=== PATIENT | female | born 1985 | race African-American/Black ===

== ENCOUNTER 2018-02-10 17:19 | Emergency (ER) | payer MEDICAID, OTHER, SELFPAY ==
[~2018-02-10] VITALS: Ht 160 cm; Wt 105.9 kg
== END 2018-02-10 19:37 | disposition home or self-care (01) ==
LOC: ED 19:15
DX: F41.1 Generalized anxiety disorder (principal); J02.8 Acute pharyngitis due to other specified organisms; B97.89 Other viral agents as the cause of diseases classified elsewhere; F17.200 Nicotine dependence, unspecified, uncomplicated
CPT/HCPCS: 82962; 99284; Q0177

== ENCOUNTER 2018-02-18 04:33 | Emergency (ER) | payer MEDICAID ==
[~2018-02-18] VITALS: Ht 160 cm; Wt 107.9 kg
[2018-02-18 04:41] VITALS: BP 134/80
[2018-02-18] MEDS ORDERED: HYDR50TA13 PO (05:10)
[2018-02-18] MEDS ORDERED: HALO5TAB5 PO (05:10)
== END 2018-02-18 05:38 | disposition home or self-care (01) ==
LOC: ED 04:43
DX: F20.0 Paranoid schizophrenia (principal); F41.9 Anxiety disorder, unspecified
CPT/HCPCS: 99284

== ENCOUNTER 2018-02-22 13:40 | Emergency (ER) | payer MEDICAID ==
[~2018-02-22] VITALS: Ht 160 cm; Wt 109.0 kg
[~2018-02-22 13:40] MED LIST: HALO5TAB5 PO; HYDR50TA13 PO
[2018-02-22 14:32] VITALS: BP 147/92
[2018-02-22] MEDS ORDERED: KETOROLAC 30 MG/1 ML ONE (14:51)
[2018-02-22] MEDS ORDERED: ONDANSETRON ODT 4 MG ONE (14:51)
[2018-02-22] MEDS ORDERED: DIPHENHYDRAMINE 25 MG CAPSULE ONE (14:51)
[2018-02-22] MEDS ORDERED: DIPHENHYDRAMINE 25 MG CAPSULE PO ONE (15:00)
[2018-02-22] MEDS ORDERED: KETOROLAC 30 MG/1 ML IM ONE (15:00)
[2018-02-22] MEDS ORDERED: ONDANSETRON ODT 4 MG PO ONE (15:00)
== END 2018-02-22 15:57 | disposition home or self-care (01) ==
LOC: ED 15:47
DX: R51 Headache (principal); F41.9 Anxiety disorder, unspecified; F20.9 Schizophrenia, unspecified; F17.200 Nicotine dependence, unspecified, uncomplicated
CPT/HCPCS: 96372; 99283; J1885; Q0162; Q0163

== ENCOUNTER 2018-04-05 08:14 | Emergency (ER) | payer MEDICAID ==
[~2018-04-05] VITALS: Ht 160 cm; Wt 106.3 kg
[2018-04-05] MEDS ORDERED: IBUPROFEN 200 MG TABLET PO ONE (08:30)
[2018-04-05] MEDS ORDERED: IBUPROFEN 200 MG TABLET ONE (08:33)
[2018-04-05 09:13] VITALS: BP 115/76
== END 2018-04-05 09:16 | disposition home or self-care (01) ==
LOC: ED 08:59
DX: S29.012A Strain of muscle and tendon of back wall of thorax, initial encounter (principal); F20.9 Schizophrenia, unspecified; F41.1 Generalized anxiety disorder; J45.31 Mild persistent asthma with (acute) exacerbation; W00.0XXA Fall on same level due to ice and snow, initial encounter; Y93.89 Activity, other specified; Y92.89 Other specified places as the place of occurrence of the external cause; Y99.8 Other external cause status
CPT/HCPCS: 72072; 99283

== ENCOUNTER 2018-04-12 05:26 | Observation (INO) | payer MEDICAID ==
[~2018-04-12] VITALS: Ht 167.6 cm; Wt 90.0 kg
[2018-04-12] MEDS ORDERED: SODIUM CHLORIDE 0.9% 1,000 ML IV ONE (05:36)
[2018-04-12] MEDS ORDERED: ZIPRASIDONE 20 MG INJ IM ONE ×2 (05:48→06:00)
[2018-04-12] MEDS ORDERED: FAMOTIDINE 20 MG/2 ML IVP ONE (06:00)
[2018-04-12] MEDS ORDERED: ONDANSETRON ODT 4 MG PO ONE (06:00)
[2018-04-12] MEDS ORDERED: MAALOX/HYOSCYAMINE/LIDOCAINE 45 ML BTL PO ONE ×2 (06:00→13:30)
[2018-04-12] MEDS ORDERED: ONDANSETRON ODT 4 MG ONE ×2 (06:01→14:06)
[2018-04-12] MEDS ORDERED: FAMOTIDINE 20 MG/2 ML ONE (06:01)
[2018-04-12] MEDS ORDERED: MAALOX/HYOSCYAMINE/LIDOCAINE 45 ML BTL ONE ×2 (06:01→13:29)
[2018-04-12 06:02] LABS: MEAN CORPUSCULAR HEMOGLOBIN 20.7 pg (27.0-34.8); MEAN CORPUSCULAR HGB CONC 31.3 g/dL (32.4-35.8); MEAN PLATELET VOLUME 10.4 fL (7.4-10.4); PLATELET COUNT 262 x10^3/uL (130-400); RED BLOOD COUNT 5.84 x10^6/uL (3.82-5.3); RED CELL DISTRIBUTION WIDTH 16.8 % (9.6-15.2)
[2018-04-12 06:11] LABS: ALBUMIN 3.4 g/dL (3.4-5.0); ANION GAP 8 mmol/L (5-15); CALCIUM 8.9 mg/dL (8.5-10.1); CHLORIDE 108 mmol/L (98-107); SALICYLATE LEVEL 3.2 mg/dL (2.8-20.0)
[2018-04-12 06:17] LABS: ALANINE AMINOTRANSFERASE 22 U/L (12-78); ALKALINE PHOSPHATASE 73 U/L (45-117); BILIRUBIN,TOTAL 0.5 mg/dL (0.2-1.0); CREATININE 0.82 mg/dL (0.55-1.02)
[2018-04-12 06:20] LABS: ACETAMINOPHEN < 2 mcg/mL (10-30)
[2018-04-12 06:38] LABS: MD YES
[2018-04-12 06:41] LABS: ANISOCYTOSIS 1+; BASOS#(MANUAL) 0.12 x10^3/uL (0-0.1); BASOS% (MANUAL) 1 % (0-1); EOS#(MANUAL) 0.37 x10^3/uL (0.0-0.4); EOS% (MANUAL) 3 % (1-7); LYMPH#(MANUAL) 6.52 x10^3/uL (1-3.4); LYMPHS% (MANUAL) 53 % (22-44); MONOS#(MANUAL) 0.37 x10^3/uL (0.3-2.7); MONOS% (MANUAL) 3 % (2-9); SEG#(MANUAL) 4.92 x10^3/uL (1.8-6.8); SEGS% (MANUAL) 40 % (42-75)
[2018-04-12 06:42] LABS: HYPOCHROMIA 2+; MICROCYTOSIS 2+; POLYCHROMASIA 1+; TARGET CELLS 1+
[2018-04-12 06:43] LABS: <PLATELET ESTIMATE> ADEQUATE; LARGE PLATELETS 1+
[2018-04-12 07:36] LABS: AMPHETAMINE SCREEN, URINE Negative (Negative); BARBITURATE SCREEN, URINE Positive (Negative); BENZODIAZEPINE SCREEN, URINE Negative (Negative); CANNABINOID SCREEN, URINE Negative (Negative); COCAINE SCREEN, URINE Negative (Negative); METHADONE SCREEN, URINE Negative (Negative); OPIATE SCREEN, URINE Negative (Negative)
[2018-04-12 09:26] LABS: ANION GAP 8 mmol/L (5-15); CALCIUM 8.7 mg/dL (8.5-10.1); CHLORIDE 112 mmol/L (98-107); CREATININE 0.78 mg/dL (0.55-1.02)
[2018-04-12] MEDS ORDERED: ACETAMINOPHEN 325 MG TABLET PO PRN (10:30)
[2018-04-12] MEDS ORDERED: HALOPERIDOL 5 MG/ML IM PRN (10:30)
[2018-04-12] MEDS ORDERED: BENZTROPINE 1 MG TABLET PO PRN (10:30)
[2018-04-12] MEDS ORDERED: NICOTINE 7 MG/24 HR PATCH.TD24 TD SCH (10:30)
[2018-04-12] MEDS ORDERED: HALOPERIDOL 5 MG TABLET PO PRN (10:30)
[2018-04-12] MEDS ORDERED: NICOTINE 7 MG/24 HR PATCH.TD24 ONE (11:11)
[2018-04-12] MEDS ORDERED: HALOPERIDOL 5 MG TABLET ONE (11:11)
[2018-04-12 13:27] VITALS: BP 130/74
[2018-04-12] MEDS ORDERED: hydrOXyzine 50MG TABLET PO SCH (21:00)
[2018-04-13] MEDS ORDERED: HALOPERIDOL 5 MG TABLET PO SCH (09:00)
== END 2018-04-13 15:30 ==
LOC: ED 06:42 → EDIP 10:10
PROVIDERS: ADMIT Internal Medicine; ATTEND Internal Medicine
DX: T14.91XA Suicide attempt, initial encounter (principal); T54.92XA Toxic effect of unspecified corrosive substance, intentional self-harm, initial encounter; R11.2 Nausea with vomiting, unspecified; F20.0 Paranoid schizophrenia; F32.9 Major depressive disorder, single episode, unspecified; F41.1 Generalized anxiety disorder; J45.909 Unspecified asthma, uncomplicated; F17.210 Nicotine dependence, cigarettes, uncomplicated; D72.829 Elevated white blood cell count, unspecified; Y93.9 Activity, unspecified; Y92.89 Other specified places as the place of occurrence of the external cause; Y99.8 Other external cause status
CPT/HCPCS: 36415; 71045; 80048; 80053; 80307; 80329; 84703; 85025; 93005; 96361; 96372; 96374; 99284; G0378; J3486; J3490; J7030; Q0162; G0480

== ENCOUNTER 2018-12-04 11:13 | Inpatient (IN) | payer MEDICAID ==
[~2018-12-04] VITALS: Ht 160 cm; Wt 100.0 kg
[2018-12-04 19:07] VITALS: BP 98/65
== END 2018-12-05 02:00 | DRG 52 ==
LOC: ED 11:54 → EDIP 13:16 → 2N 15:51
PROVIDERS: ADMIT Internal Medicine; ATTEND Internal Medicine
DX: G93.40 Encephalopathy, unspecified (principal); D50.9 Iron deficiency anemia, unspecified; F15.10 Other stimulant abuse, uncomplicated; F41.1 Generalized anxiety disorder; F20.3 Undifferentiated schizophrenia; J45.909 Unspecified asthma, uncomplicated; F44.89 Other dissociative and conversion disorders; Z88.0 Allergy status to penicillin
CPT/HCPCS: 36415; 51702; 72040; 80048; 80307; 81003; 82040; 82728; 83540; 83550; 84443; 84703; 85025; G0378; J1630

== ENCOUNTER 2018-12-04 23:43 | Inpatient (IN) | payer MEDICAID ==
[~2018-12-04] VITALS: Ht 160 cm; Wt 103.0 kg
[2018-12-11 07:39] VITALS: BP 122/73
== END 2018-12-11 13:00 | disposition home or self-care (01) | DRG 750 ==
LOC: 3E 12-05 02:04
PROVIDERS: ADMIT Psychiatry & Neurology Psychosomatic Medicine; ATTEND Psychiatry & Neurology Psychosomatic Medicine
DX: F20.0 Paranoid schizophrenia (principal); F15.20 Other stimulant dependence, uncomplicated; F33.1 Major depressive disorder, recurrent, moderate; G47.00 Insomnia, unspecified; E66.9 Obesity, unspecified; Z88.0 Allergy status to penicillin; Z68.41 Body mass index [BMI] 40.0-44.9, adult; Z79.899 Other long term (current) drug therapy
CPT/HCPCS: 36415; 51702; 71045; 72040; 80048; 80061; 80307; 81003; 82040; 82607; 82728; 83540; 83550; 84443; 84703; 85025; 86592; 93005; G0378; J1630

== ENCOUNTER 2019-05-16 16:13 | Emergency (ER) | payer MEDICAID ==
[~2019-05-16 16:13] MED LIST changes: +DIVA500T4 PO; -HYDR50TA13 PO; +HYDR50TA99 PO; +OLAN10TA9 PO
--- NOTE | 2019-05-16 16:51 | NUR ---
NOT IN LOBBY X1
--- NOTE | 2019-05-16 17:10 | NUR ---
NOT IN LOBBY X2
--- NOTE | 2019-05-16 18:45 | NUR ---
NOT IN LOBBY X3
== END 2019-05-16 18:47 | disposition left against medical advice (07) ==
LOC: ED 17:00
DX: Z53.21 Procedure and treatment not carried out due to patient leaving prior to being seen by health care provider (principal)

== ENCOUNTER 2019-05-20 13:28 | Emergency (ER) | payer MEDICAID ==
[~2019-05-20] VITALS: Ht 172.7 cm; Wt 100.0 kg
[~2019-05-20 13:28] MED LIST changes: +HYDR50TA13 PO; -HYDR50TA99 PO
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
--- NOTE | 2019-05-20 14:00 | NUR ---
WINDOWS SERVER SPECIALIST LYLE AT BEDSIDE AFTER POLICE ACADEMY PROGRAM COORDINATOR TIEN SPEAKING WITH PT. PT MOVING AROUND IN [place] AND [place]
[2019-05-20] MEDS ORDERED: ZIPRASIDONE 20 MG INJ IM ONE (14:30)
[2019-05-20 15:05] LABS: ALBUMIN 3.5 g/dL (3.4-5.0); ANION GAP 8 mmol/L (5-15); CHLORIDE 109 mmol/L (98-107); CREATININE 0.63 mg/dL (0.55-1.02); SALICYLATE LEVEL < 1.7 mg/dL (2.8-20.0)
[2019-05-20 15:30] LABS: BASOPHILS # (AUTO) 0.06 x10^3/uL (0-0.1); BASOPHILS % (AUTO) 1 % (0-1); EOSINOPHILS # (AUTO) 0.01 x10^3/uL (0-0.4); EOSINOPHILS % (AUTO) 0 % (1-7); LYMPHOCYTES # (AUTO) 2.63 x10^3/uL (1-3.4); LYMPHOCYTES % (AUTO) 28 % (22-44); MD SCAN; MEAN CORPUSCULAR VOLUME 64.5 fL (80-100); MEAN PLATELET VOLUME 9.5 fL (7.4-10.4); MONOCYTES # (AUTO) 0.67 x10^3/uL (0.2-0.8); MONOCYTES % (AUTO) 7 % (2-9); NEUTROPHILS # (AUTO) 5.89 x10^3/uL (1.8-6.8); NEUTROPHILS % (AUTO) 64 % (42-75); PLATELET COUNT 291 x10^3/uL (130-400); RED BLOOD COUNT 5.41 x10^6/uL (3.82-5.3)
--- NOTE | 2019-05-20 17:08 | NUR ---
PT AWAKE AND UOB TO BATHROOM WITHOUT ASSISTANCE. OBTAINED URINE SAMPLE. PROVIDED FOOD
[2019-05-20 17:22] LABS: MICROSCOPIC NOT IND
[2019-05-20 17:26] LABS: CULTURE INDICATED? NO
[2019-05-20 17:35] LABS: AMPHETAMINE SCREEN, URINE Positive (Negative); BARBITURATE SCREEN, URINE Negative (Negative); BENZODIAZEPINE SCREEN, URINE Negative (Negative); CANNABINOID SCREEN, URINE Negative (Negative); COCAINE SCREEN, URINE Negative (Negative); METHADONE SCREEN, URINE Negative (Negative); OPIATE SCREEN, URINE Negative (Negative)
--- NOTE | 2019-05-20 18:27 | NUR ---
AFTER EATING PT BACK TO SLEEP
--- NOTE | 2019-05-20 19:07 | NUR ---
REPORT TO SHEKHAR ADKINS
--- NOTE | 2019-05-20 19:12 | NUR ---
REPORT RECEIVED FROM JED PEREZ. PLAN OF CARE DISCUSSED. PT SLEEPING AT THIS TIME. REPIRATIONS EVEN AND UNLABORED.
[2019-05-20 20:44] VITALS: BP 103/54
--- NOTE | 2019-05-20 20:44 | NUR ---
PT IS A&O X4. PT GIVEN SOMETHING TO DRINK AND EAT. PT IS ABLE TO DRESS SELF AND AMBULATE SAFELY AROUND COSTA AND ROOM. PT GIVEN A TAXI VOUCHER. VS STABLE. PT DISCHARGED.
== END 2019-05-20 21:04 | disposition home or self-care (01) ==
LOC: ED 14:50
DX: O26.891 Other specified pregnancy related conditions, first trimester (principal); F15.959 Other stimulant use, unspecified with stimulant-induced psychotic disorder, unspecified; F41.1 Generalized anxiety disorder; J45.909 Unspecified asthma, uncomplicated; Z3A.01 Less than 8 weeks gestation of pregnancy
CPT/HCPCS: 36415; 80048; 80307; 81003; 82040; 84702; 85025; 96372; 99284; J3486; 84703; 99283

== ENCOUNTER 2019-08-23 16:40 | Emergency (ER) | payer MEDICAID ==
[~2019-08-23] VITALS: Ht 160 cm; Wt 109.1 kg
[~2019-08-23 16:40] MED LIST changes: -HYDR50TA13 PO; +HYDR50TA99 PO
--- NOTE | 2019-08-23 16:43 | NUR ---
Pt BIB [facility] for "hand pain" and "". Pt speech is rambling, in FCS with no SOB. NAD, denies additional needs at this time, Skin WNL, RESP WNL, ABC INTACT. Pt changed into gown, ambulated to and from bathroom with a smooth and steady gait, pt states she "messed up and forgot to pee into the cup". Salena MAGANAN at BS for eval and to discuss POC.
--- NOTE | 2019-08-23 17:19 | NUR ---
pt resting in gurney, call light within reach, NAD, denies additional needs at this time. Pt is in NAD, RESP WNL, Skin WNL and warm and dry, pt speech is clear but rushed, FCS no SOB, MAEx4. Waiting for xray, WCTM.
--- NOTE | 2019-08-23 17:44 | NUR ---
pt resting in gurney, call light within reach, NAD, denies additional needs at this time. Pt is in NAD, RESP WNL, Skin WNL and warm and dry, pt speech is clear but rushed, FCS no SOB, MAEx4. ADOPTION SPECIALIST notified of HR. Waiting for xray and US, WCTM.
--- NOTE | 2019-08-23 18:53 | NUR ---
pt resting in [place], call light within reach, NAD, denies additional needs at this time. Pt is in NAD, RESP WNL, Skin WNL and warm and dry, FCS no SOB noted, MAEx4. Waiting for US, WCTM.
[2019-08-23 18:54] VITALS: BP 147/64
--- NOTE | 2019-08-23 18:57 | NUR ---
Report received from JED Guillory. This RN to assume care. Awaiting US results.
--- NOTE | 2019-08-23 19:08 | NUR ---
Patient talking to herself with inappropriate words to the situation.
--- NOTE | 2019-08-23 19:23 | NUR ---
Discharge instructions given. All questions and concerns addressed. Patient ambulatory with a steady gait. Belongings with patient.
== END 2019-08-23 19:25 | disposition home or self-care (01) ==
LOC: EDBD → MERGE 16:40 → ED 18:10
DX: O26.892 Other specified pregnancy related conditions, second trimester (principal); R05 Cough; F15.10 Other stimulant abuse, uncomplicated; J45.909 Unspecified asthma, uncomplicated; F17.200 Nicotine dependence, unspecified, uncomplicated; Z3A.20 20 weeks gestation of pregnancy
CPT/HCPCS: 71045; 76815; 99284

== ENCOUNTER 2019-08-28 23:53 | Emergency (ER) | payer MEDICAID ==
[2019-08-29] VITALS: BP 128/73
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
[2019-08-29 00:26] LABS: ALANINE AMINOTRANSFERASE 28 U/L (12-78); ANION GAP 5 mmol/L (5-15); CALCIUM 8.7 mg/dL (8.5-10.1); CHLORIDE 106 mmol/L (98-107); CREATININE 0.49 mg/dL (0.55-1.02)
[2019-08-29 00:27] LABS: SALICYLATE LEVEL < 1.7 mg/dL (2.8-20.0)
[2019-08-29 00:28] LABS: ALKALINE PHOSPHATASE 55 U/L (45-117); BILIRUBIN,TOTAL 0.4 mg/dL (0.2-1.0); TOTAL PROTEIN 6.6 g/dL (6.4-8.2)
[2019-08-29 00:35] LABS: MD YES; MEAN CORPUSCULAR HEMOGLOBIN 20.5 pg (27.0-34.8); MEAN CORPUSCULAR HGB CONC 30.9 g/dL (32.4-35.8); MEAN CORPUSCULAR VOLUME 66.3 fL (80-100); MEAN PLATELET VOLUME 8.1 fL (7.4-10.4); PLATELET COUNT 259 x10^3/uL (130-400); RED BLOOD COUNT 4.67 x10^6/uL (3.82-5.3); RED CELL DISTRIBUTION WIDTH 16.5 % (9.6-15.2)
[2019-08-29 00:39] LABS: BASOS#(MANUAL) 0.09 x10^3/uL (0-0.1); BASOS% (MANUAL) 1 % (0-1); EOS#(MANUAL) 0.44 x10^3/uL (0.0-0.4); EOS% (MANUAL) 5 % (1-7); LYMPH#(MANUAL) 2.29 x10^3/uL (1-3.4); LYMPHS% (MANUAL) 26 % (22-44); MONOS#(MANUAL) 0.18 x10^3/uL (0.3-2.7); MONOS% (MANUAL) 2 % (2-9); REACTIVE LYMPHS # (MANUAL) 0.18 x10^3/uL (0-0); REACTIVE LYMPHS % (MANUAL) 2 % (0-0); SEG#(MANUAL) 5.63 x10^3/uL (1.8-6.8); SEGS% (MANUAL) 64 % (42-75)
[2019-08-29 00:40] LABS: ANISOCYTOSIS 1+; HYPOCHROMIA 2+; MICROCYTOSIS 2+; OVALOCYTES 1+
[2019-08-29 00:41] LABS: TARGET CELLS 2+
[2019-08-29] MEDS ORDERED: ARIP2TAB2 PO (00:43)
[2019-08-29 00:45] LABS: <PLATELET ESTIMATE> ADEQUATE
[2019-08-29 00:46] LABS: <PLT MORPHOLOGY> NORMAL PLT MORPH
[2019-08-29] MEDS ORDERED: hydrOXyzine 50MG TABLET ONE (00:55)
--- NOTE | 2019-08-29 00:59 | NUR ---
Patient placed on hold. Room secured, belongings locked in cabinet, sitter outside. Patient talking to herself and yelling out. Medicated patient per mar.
--- NOTE | 2019-08-29 02:21 | NUR ---
Patient laying in gurney talking to herself. Patient is calm. Sitter outside, room secure, belongings locked in cabinet.
--- NOTE | 2019-08-29 02:24 | NUR ---
Patient unable to provide urine at this time.
--- NOTE | 2019-08-29 03:15 | NUR ---
Patient resting in gurney. Respirations even and unlabored. Sitter outside, room secured, belongings locked in cabinet.
--- NOTE | 2019-08-29 04:13 | NUR ---
Packet faxed to [facility], [facility], and [facility].
--- NOTE | 2019-08-29 04:34 | NUR ---
Patient sleeping in rney. Respirations even and unlabored. Sitter outside, room secured, belongings locked in cabinet.
--- NOTE | 2019-08-29 05:32 | NUR ---
Patient sleeping in rney. Respirations even and unlabored. Sitter outside, room secured, belongings locked in cabinet.
--- NOTE | 2019-08-29 06:19 | NUR ---
Patient sleeping in rney. Respirations even and unlabored. Sitter outside, room secured, belongings locked in cabinet.
--- NOTE | 2019-08-29 06:51 | NUR ---
Report given to JED Merino.
--- NOTE | 2019-08-29 06:51 | NUR ---
RECEIVED REPORT FROM NONA. PT SLEEPING CALMLY ON GURNEY, NAD WITH EQUAL CHEST RISE/FALL, NO NEEDS AT THIS TIME, PT REMAINS IN SAFE ENVIRONMENT, SITTER IN VIEW.
--- NOTE | 2019-08-29 08:01 | NUR ---
PT UP TO BR- PROVIDED UA SAMPLE- SENT TO LAB, PT AGITATED & YELLING "I WANT MY STUFF, I NEED TO GET OUT OF HERE!"- DR SANDERS AWARE, RESPONDS TO STAFF WITH MUMBLED ANSWERS, NAD, NO NEEDS AT THIS TIME, PT REMAINS IN SAFE ENVIRONMENT, SITTER IN VIEW.
[2019-08-29 08:17] LABS: AMPHETAMINE SCREEN, URINE Positive (Negative); BARBITURATE SCREEN, URINE Negative (Negative); BENZODIAZEPINE SCREEN, URINE Negative (Negative); CANNABINOID SCREEN, URINE Negative (Negative); COCAINE SCREEN, URINE Negative (Negative); METHADONE SCREEN, URINE Negative (Negative); OPIATE SCREEN, URINE Negative (Negative)
--- NOTE | 2019-08-29 08:25 | NUR ---
PT GIVEN FOOD TRAY & PERSONAL BELONGINGS FOR DC HOME.
== END 2019-08-29 09:26 | disposition home or self-care (01) ==
LOC: ED 08-29 02:04
DX: O99.342 Other mental disorders complicating pregnancy, second trimester (principal); O99.512 Diseases of the respiratory system complicating pregnancy, second trimester; S60.812A Abrasion of left wrist, initial encounter; F15.159 Other stimulant abuse with stimulant-induced psychotic disorder, unspecified; J45.909 Unspecified asthma, uncomplicated; Z3A.20 20 weeks gestation of pregnancy; Z72.9 Problem related to lifestyle, unspecified; X58.XXXA Exposure to other specified factors, initial encounter; Y93.89 Activity, other specified; Y92.89 Other specified places as the place of occurrence of the external cause; Y99.8 Other external cause status
CPT/HCPCS: 36415; 80053; 80307; 85025; 99285; Q0177

== ENCOUNTER 2019-09-03 12:49 | Emergency (ER) | payer MEDICAID ==
[~2019-09-03] VITALS: Ht 157.5 cm; Wt 105.0 kg
[~2019-09-03 12:49] MED LIST changes: +ARIP2TAB2 PO
[2019-09-03 12:51] VITALS: BP 110/45
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
--- NOTE | 2019-09-03 13:12 | NUR ---
EDMD AT BEDSIDE TO EVALUATE AT THIS TIME.
--- NOTE | 2019-09-03 13:36 | NUR ---
PT SLEEPING IN GURNEY. RESPS EVEN AND UNLABORED.
[2019-09-03 13:42] LABS: ALBUMIN 2.9 g/dL (3.4-5.0); ANION GAP 4 mmol/L (5-15); CALCIUM 8.4 mg/dL (8.5-10.1); CHLORIDE 110 mmol/L (98-107)
[2019-09-03 14:02] LABS: CREATININE 0.47 mg/dL (0.55-1.02)
[2019-09-03 14:09] LABS: SALICYLATE LEVEL < 1.7 mg/dL (2.8-20.0)
[2019-09-03 14:20] LABS: MEAN CORPUSCULAR HEMOGLOBIN 20.4 pg (27.0-34.8); MEAN CORPUSCULAR HGB CONC 30.5 g/dL (32.4-35.8); MEAN CORPUSCULAR VOLUME 66.7 fL (80-100); MEAN PLATELET VOLUME 8.4 fL (7.4-10.4); PLATELET COUNT 275 x10^3/uL (130-400); RED BLOOD COUNT 4.62 x10^6/uL (3.82-5.3); RED CELL DISTRIBUTION WIDTH 16.8 % (9.6-15.2)
[2019-09-03 14:24] LABS: MD YES
--- NOTE | 2019-09-03 14:24 | NUR ---
PT STILL SLEEPING IN [facility]. RESPS EVEN AND UNLABORED. URINE CUP IN ROOM. BP/SPO2 MONITORS IN PLACE. RAILS UP X 2.
[2019-09-03 14:28] LABS: EOS#(MANUAL) 0.22 x10^3/uL (0.0-0.4); EOS% (MANUAL) 2 % (1-7); LYMPH#(MANUAL) 4.47 x10^3/uL (1-3.4); LYMPHS% (MANUAL) 41 % (22-44); MONOS#(MANUAL) 0.44 x10^3/uL (0.3-2.7); MONOS% (MANUAL) 4 % (2-9); SEG#(MANUAL) 5.78 x10^3/uL (1.8-6.8); SEGS% (MANUAL) 53 % (42-75)
[2019-09-03 14:29] LABS: ANISOCYTOSIS 1+; HYPOCHROMIA 2+; POLYCHROMASIA 1+
[2019-09-03 14:30] LABS: MICROCYTOSIS 2+
[2019-09-03 14:32] LABS: TARGET CELLS 1+; TEAR DROPS 1+
[2019-09-03 14:33] LABS: <PLATELET ESTIMATE> ADEQUATE; <PLT MORPHOLOGY> NORMAL PLT MORPH; OVALOCYTES 1+
--- NOTE | 2019-09-03 15:05 | NUR ---
PT PUT HAND CREAM ALL OVER THE FACE AND HANDS. EMT CLEANED. TIE INSPECTOR/EDMD NOTIFIED. PT AMB TO BR WITH STEADY GAIT. URINE CUP GIVEN.
--- NOTE | 2019-09-03 15:28 | NUR ---
FINISHED STOCK INSPECTOR AT BEDSIDE TO EVALUATE AT THIS TIME.
--- NOTE | 2019-09-03 15:28 | NUR ---
PT AMB TO ROOM WITH STEADY GAIT. PT PROVIDED URINE SAMPLE. UA SENT.
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
[2019-09-03 15:48] LABS: AMPHETAMINE SCREEN, URINE Positive (Negative); BARBITURATE SCREEN, URINE Negative (Negative); BENZODIAZEPINE SCREEN, URINE Positive (Negative); CANNABINOID SCREEN, URINE Negative (Negative); COCAINE SCREEN, URINE Positive (Negative); METHADONE SCREEN, URINE Negative (Negative); OPIATE SCREEN, URINE Negative (Negative)
--- NOTE | 2019-09-03 15:49 | NUR ---
SITTER MONITORING FROM [facility] FOR SAFETY AT THIS TIME.
--- NOTE | 2019-09-03 17:25 | NUR ---
DIET TRAY ORDERED AT THIS TIME.
--- NOTE | 2019-09-03 17:26 | NUR ---
WARM BLANKET PROVIDED PER FRANCO.
--- NOTE | 2019-09-03 17:54 | NUR ---
pt moved to room 2 by darrell.
--- NOTE | 2019-09-03 17:57 | NUR ---
meal tray provided at this time.
--- NOTE | 2019-09-03 18:27 | NUR ---
pt resting in [facility]. pt's aox4. resps even and unlabored. underwear provided per request.
--- NOTE | 2019-09-03 19:03 | NUR ---
report given to isaac flores.
== END 2019-09-03 19:35 | disposition other institution (70) ==
LOC: ED 13:20
DX: F15.150 Other stimulant abuse with stimulant-induced psychotic disorder with delusions (principal); R44.3 Hallucinations, unspecified; J45.909 Unspecified asthma, uncomplicated; F17.210 Nicotine dependence, cigarettes, uncomplicated
CPT/HCPCS: 36415; 80048; 80307; 82040; 84703; 85025; 99283; 99406

== ENCOUNTER 2019-09-03 18:32 | Inpatient (IN) | payer MEDICAID ==
[~2019-09-03] VITALS: Ht 160 cm; Wt 108.2 kg
[2019-09-03] MEDS ORDERED: DOCUSATE 100 MG CAPSULE PO PRN (19:30)
[2019-09-03] MEDS ORDERED: ACETAMINOPHEN 325 MG TABLET PO PRN (19:30)
[2019-09-03] MEDS ORDERED: POLYETHYLENE GLYCOL 17 GM PACKET PO PRN (19:30)
[2019-09-03] MEDS ORDERED: ONDANSETRON ODT 4 MG PO PRN (19:30)
[2019-09-03] MEDS ORDERED: BISACODYL 10 MG SUPP PR PRN (19:30)
[2019-09-03 19:50] VITALS: BP 120/78
[2019-09-03] MEDS ORDERED: PLEASE ENTER HEIGHT AND WEIGHT MC SCH (20:30)
[2019-09-03] MEDS ORDERED: PALIPERIDONE 3 MG TAB.ER.24 PO PRN (21:30)
[2019-09-03] MEDS ORDERED: DIPHENHYDRAMINE 25 MG CAPSULE PO PRN (21:30)
[2019-09-03] MEDS: DIPHENHYDRAMINE 50 MG CAPSULE PO SCH (21:49)
[2019-09-04 01:27] VITALS: BP 120/78
[2019-09-04 07:49] VITALS: BP 120/72
[2019-09-04] MEDS: PRENATAL VIT/IRON/FA 1 EACH TABLET PO SCH (08:25)
[2019-09-04 11:55] LABS: FREE T4 (FREE THYROXINE) 1.02 ng/dL (0.76-1.46)
[2019-09-04 19:15] VITALS: BP 112/77
[2019-09-04] MEDS: DIPHENHYDRAMINE 50 MG CAPSULE PO SCH (20:36)
[2019-09-05 07:34] VITALS: BP 120/74
[2019-09-05] MEDS: PRENATAL VIT/IRON/FA 1 EACH TABLET PO SCH (13:43)
[2019-09-05 19:29] VITALS: BP 96/56
[2019-09-05] MEDS: DIPHENHYDRAMINE 50 MG CAPSULE PO SCH (20:23)
[2019-09-06 07:00] VITALS: BP 109/61
[2019-09-06] MEDS: PRENATAL VIT/IRON/FA 1 EACH TABLET PO SCH (08:11)
[2019-09-06 09:25] LABS: ANION GAP 7 mmol/L (5-15); CALCIUM 8.9 mg/dL (8.5-10.1); CHLORIDE 107 mmol/L (98-107)
[2019-09-06 09:32] LABS: MEAN CORPUSCULAR HEMOGLOBIN 20.6 pg (27.0-34.8); MEAN CORPUSCULAR VOLUME 66.6 fL (80-100); MEAN PLATELET VOLUME 9.5 fL (7.4-10.4); PLATELET COUNT 310 x10^3/uL (130-400); RED BLOOD COUNT 4.81 x10^6/uL (3.82-5.3); RED CELL DISTRIBUTION WIDTH 16.1 % (9.6-15.2)
[2019-09-06 10:00] LABS: MD YES
[2019-09-06 10:48] LABS: BASOS#(MANUAL) 0.14 x10^3/uL (0-0.1); BASOS% (MANUAL) 1 % (0-1); LYMPH#(MANUAL) 2.86 x10^3/uL (1-3.4); LYMPHS% (MANUAL) 21 % (22-44); MONOS#(MANUAL) 0.14 x10^3/uL (0.3-2.7); MONOS% (MANUAL) 1 % (2-9); SEG#(MANUAL) 10.47 x10^3/uL (1.8-6.8); SEGS% (MANUAL) 77 % (42-75)
[2019-09-06 10:50] LABS: ANISOCYTOSIS 1+
[2019-09-06 10:51] LABS: HYPOCHROMIA 2+; MICROCYTOSIS 2+
[2019-09-06 10:52] LABS: POLYCHROMASIA 1+
[2019-09-06 10:53] LABS: OVALOCYTES 1+; TARGET CELLS 1+; TEAR DROPS 1+
[2019-09-06 10:55] LABS: <PLATELET ESTIMATE> ADEQUATE; <PLT MORPHOLOGY> NORMAL PLT MORPH
[2019-09-06 14:55] LABS: CULTURE INDICATED? YES; MICROSCOPIC INDICATED
[2019-09-06 19:58] VITALS: BP 112/64
[2019-09-06] MEDS: DIPHENHYDRAMINE 50 MG CAPSULE PO SCH (21:00)
[2019-09-07 07:38] VITALS: BP 102/65
[2019-09-07] MEDS: PRENATAL VIT/IRON/FA 1 EACH TABLET PO SCH (08:57)
[2019-09-07 13:37] LABS: MEAN CORPUSCULAR HEMOGLOBIN 20.6 pg (27.0-34.8); MEAN CORPUSCULAR VOLUME 66.5 fL (80-100); MEAN PLATELET VOLUME 8.4 fL (7.4-10.4); PLATELET COUNT 288 x10^3/uL (130-400); RED BLOOD COUNT 5.18 x10^6/uL (3.82-5.3); RED CELL DISTRIBUTION WIDTH 16.4 % (9.6-15.2)
[2019-09-07] MEDS ORDERED: FOSFOMYCIN 3 GM PACKET PO ONE ×2 (14:00→17:00)
[2019-09-07 14:21] LABS: MD YES
[2019-09-07 14:23] LABS: BAND#(MANUAL) 0.47 x10^3/uL; BANDS%(MANUAL) 3 % (0-7); EOS#(MANUAL) 0.16 x10^3/uL (0.0-0.4); EOS% (MANUAL) 1 % (1-7); LYMPHS% (MANUAL) 16 % (22-44); MONOS#(MANUAL) 0.78 x10^3/uL (0.3-2.7); MONOS% (MANUAL) 5 % (2-9); SEGS% (MANUAL) 75 % (42-75)
[2019-09-07 14:24] LABS: ANISOCYTOSIS 1+; HYPOCHROMIA 2+; MICROCYTOSIS 2+; OVALOCYTES 1+; POLYCHROMASIA 1+; TARGET CELLS 1+; TEAR DROPS 1+
[2019-09-07 14:25] LABS: <PLATELET ESTIMATE> ADEQUATE; <PLT MORPHOLOGY> NORMAL PLT MORPH; SCHISTOCYTES 1+
[2019-09-07 19:15] VITALS: BP 0/0
[2019-09-07] MEDS: DIPHENHYDRAMINE 50 MG CAPSULE PO SCH (20:23)
[2019-09-08 07:00] VITALS: BP 106/66
[2019-09-08] MEDS: PRENATAL VIT/IRON/FA 1 EACH TABLET PO SCH ×2 (08:12→09:00)
[2019-09-08 08:25] LABS: MD YES; MEAN CORPUSCULAR HEMOGLOBIN 20.7 pg (27.0-34.8); MEAN CORPUSCULAR VOLUME 66.8 fL (80-100); MEAN PLATELET VOLUME 8.2 fL (7.4-10.4); PLATELET COUNT 289 x10^3/uL (130-400); RED BLOOD COUNT 5.15 x10^6/uL (3.82-5.3)
[2019-09-08 08:26] LABS: BAND#(MANUAL) 0.42 x10^3/uL; BANDS%(MANUAL) 3 % (0-7); EOS#(MANUAL) 0.14 x10^3/uL (0.0-0.4); EOS% (MANUAL) 1 % (1-7); LYMPHS% (MANUAL) 17 % (22-44); MONOS#(MANUAL) 0.28 x10^3/uL (0.3-2.7); MONOS% (MANUAL) 2 % (2-9); SEG#(MANUAL) 10.86 x10^3/uL (1.8-6.8); SEGS% (MANUAL) 77 % (42-75)
[2019-09-08 08:27] LABS: ANISOCYTOSIS 1+; HYPOCHROMIA 2+; MICROCYTOSIS 2+; OVALOCYTES 1+; POLYCHROMASIA 1+; TEAR DROPS 1+
[2019-09-08 08:28] LABS: SCHISTOCYTES 1+
[2019-09-08 08:29] LABS: <PLATELET ESTIMATE> ADEQUATE; <PLT MORPHOLOGY> NORMAL PLT MORPH; TARGET CELLS 1+
[2019-09-08 19:52] VITALS: BP 116/69
[2019-09-08] MEDS: DIPHENHYDRAMINE 50 MG CAPSULE PO SCH (22:27)
[2019-09-09 07:00] VITALS: BP 119/78
[2019-09-09] MEDS: PRENATAL VIT/IRON/FA 1 EACH TABLET PO SCH (09:34)
[2019-09-09 13:51] LABS: MEAN CORPUSCULAR HEMOGLOBIN 20.5 pg (27.0-34.8); MEAN CORPUSCULAR HGB CONC 30.8 g/dL (32.4-35.8); MEAN CORPUSCULAR VOLUME 66.4 fL (80-100); MEAN PLATELET VOLUME 8.4 fL (7.4-10.4); PLATELET COUNT 287 x10^3/uL (130-400); RED BLOOD COUNT 5.16 x10^6/uL (3.82-5.3); RED CELL DISTRIBUTION WIDTH 16.1 % (9.6-15.2)
[2019-09-09 14:07] LABS: MD YES
[2019-09-09 14:11] LABS: LYMPH#(MANUAL) 2.48 x10^3/uL (1-3.4); LYMPHS% (MANUAL) 17 % (22-44); MONOS#(MANUAL) 0.29 x10^3/uL (0.3-2.7); MONOS% (MANUAL) 2 % (2-9); SEG#(MANUAL) 11.83 x10^3/uL (1.8-6.8); SEGS% (MANUAL) 81 % (42-75)
[2019-09-09 14:12] LABS: ANISOCYTOSIS 1+; MICROCYTOSIS 2+; POLYCHROMASIA 1+
[2019-09-09 14:14] LABS: HYPOCHROMIA 2+; OVALOCYTES 1+; SCHISTOCYTES 1+; TARGET CELLS 1+; TEAR DROPS 1+
[2019-09-09 14:15] LABS: <PLATELET ESTIMATE> ADEQUATE; <PLT MORPHOLOGY> NORMAL PLT MORPH
[2019-09-09 19:44] VITALS: BP 115/77
[2019-09-09] MEDS: DIPHENHYDRAMINE 50 MG CAPSULE PO SCH (20:17)
[2019-09-10 07:36] VITALS: BP 111/75
[2019-09-10] MEDS: PRENATAL VIT/IRON/FA 1 EACH TABLET PO SCH (08:06)
[2019-09-10] MEDS ORDERED: CEFDINIR 300 MG CAPSULE PO SCH (09:00)
[2019-09-10 09:38] LABS: MEAN CORPUSCULAR HEMOGLOBIN 20.7 pg (27.0-34.8); MEAN CORPUSCULAR HGB CONC 31.4 g/dL (32.4-35.8); MEAN PLATELET VOLUME 10.2 fL (7.4-10.4); PLATELET COUNT 356 x10^3/uL (130-400); RED BLOOD COUNT 5.17 x10^6/uL (3.82-5.3); RED CELL DISTRIBUTION WIDTH 16.1 % (9.6-15.2)
[2019-09-10 10:35] LABS: BASOPHILS # (AUTO) 0.14 x10^3/uL (0-0.1); BASOPHILS % (AUTO) 1 % (0-1); EOSINOPHILS # (AUTO) 0.14 x10^3/uL (0-0.4); EOSINOPHILS % (AUTO) 1 % (1-7); LYMPHOCYTES # (AUTO) 2.39 x10^3/uL (1-3.4); LYMPHOCYTES % (AUTO) 16 % (22-44); MD SCAN; MONOCYTES # (AUTO) 0.67 x10^3/uL (0.2-0.8); MONOCYTES % (AUTO) 5 % (2-9); NEUTROPHILS # (AUTO) 11.47 x10^3/uL (1.8-6.8); NEUTROPHILS % (AUTO) 78 % (42-75)
== END 2019-09-10 15:59 | disposition left against medical advice (07) | DRG 566 ==
LOC: 3E 20:14
PROVIDERS: ADMIT Psychiatry & Neurology Psychosomatic Medicine; ATTEND Psychiatry & Neurology Psychosomatic Medicine
DX: O99.342 Other mental disorders complicating pregnancy, second trimester (principal); F15.20 Other stimulant dependence, uncomplicated; Z68.41 Body mass index [BMI] 40.0-44.9, adult; F20.0 Paranoid schizophrenia; O99.322 Drug use complicating pregnancy, second trimester; O99.212 Obesity complicating pregnancy, second trimester; O23.42 Unspecified infection of urinary tract in pregnancy, second trimester; O99.512 Diseases of the respiratory system complicating pregnancy, second trimester; J45.909 Unspecified asthma, uncomplicated; E66.9 Obesity, unspecified; Z88.0 Allergy status to penicillin; Z59.0 Homelessness; Z3A.20 20 weeks gestation of pregnancy
CPT/HCPCS: 36415; 80048; 81001; 84439; 84443; 85025; 87086; 93005

== ENCOUNTER 2019-10-05 08:30 | Emergency (ER) | payer MEDICAID ==
[~2019-10-05] VITALS: Ht 165.1 cm; Wt 95.0 kg
--- NOTE | 2019-10-05 08:30 | NUR ---
ROMANA [place]o feeling "scared" Pt visibly anxious, moaning, crying, restless. Verbal reassurance provided to pt. Pt able to be calmed somewhat, but as soon as staff begins asking questions to assess pt she becomes extremely agitated again. Pt able to state first name "Taniya", states does not know last name. Pt states she is in [place] in [place], does not know the date. Pt asked what her birthday is, she states "[birth year]. I'm only 7 years old." Pt does appear to be an adult in her 40s. Pt denies pain, then states she has pain "all over", then denies pain. Pt denies SI/HI. Pt placed in gown and positioned for comfort in bed. Continuous heart, oxygen and BP monitors applied, all safety measures observed.
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
[2019-10-05] MEDS ORDERED: SODIUM CHLORIDE 0.9% 1,000ML IVBOLUS ONE (09:00)
[2019-10-05] MEDS ORDERED: SODIUM CHLORIDE FLUSH 10ML SYR IVF ONE (09:00)
[2019-10-05] MEDS ORDERED: ZIPRASIDONE 20 MG INJ IM ONE ×2 (09:23→09:30)
--- NOTE | 2019-10-05 09:30 | NUR ---
Pt refusing IV, refusing labs, refusing monitoring. Pt becoming increasingly agitated, shouting at staff and becoming physically agressive with staff. Discussed pt condition with Gage SPENCE. Orders recieved for Geodon 5mg IM. Pt medicated per order, tolerated well. Pt able to position self for comfort in bed. Room remains secured, sitter within eyesight of pt, all safety measures observed.
--- NOTE | 2019-10-05 09:59 | NUR ---
Pt sitting up in bed, talking to someone who isn't there. Pt no longer having shouting outbursts. Lab at bedside to attempt to collect blood sample. Pt refusing. Room remains secured, sitter within eyesight of pt, all safety measures observed.
--- NOTE | 2019-10-05 10:10 | NUR ---
Pt appears more calm, still talking with people who aren't there, however pt agreeable to technology lab teacher drawing blood sample. sleep technician at bedside to do so now. Room remains secured, sitter within eyesight of pt, all safety measures observed.
--- NOTE | 2019-10-05 10:18 | NUR ---
Dr. Castañeda at bedside to evaluate pt.
[2019-10-05 10:36] LABS: ALBUMIN 3.9 g/dL (3.4-5.0); ANION GAP 13 mmol/L (5-15); CALCIUM 8.8 mg/dL (8.5-10.1); CHLORIDE 107 mmol/L (98-107); CREATININE 0.86 mg/dL (0.55-1.02); SALICYLATE LEVEL 1.8 mg/dL (2.8-20.0)
[2019-10-05 10:42] LABS: MEAN CORPUSCULAR HEMOGLOBIN 20.1 pg (27.0-34.8); MEAN CORPUSCULAR HGB CONC 30.5 g/dL (32.4-35.8); MEAN PLATELET VOLUME 10.4 fL (7.4-10.4); PLATELET COUNT 494 x10^3/uL (130-400); RED BLOOD COUNT 5.19 x10^6/uL (3.82-5.3); RED CELL DISTRIBUTION WIDTH 17.3 % (9.6-15.2)
--- NOTE | 2019-10-05 11:10 | NUR ---
Pt no longer screaming, continues talking animatedly with someone who is not there. Room remains secured, sitter within eyesight of pt, all safety measures observed.
[2019-10-05 11:18] LABS: BASOPHILS # (AUTO) 0.08 x10^3/uL (0-0.1); BASOPHILS % (AUTO) 1 % (0-1); EOSINOPHILS % (AUTO) 1 % (1-7); LYMPHOCYTES # (AUTO) 3.27 x10^3/uL (1-3.4); LYMPHOCYTES % (AUTO) 31 % (22-44); MONOCYTES # (AUTO) 0.78 x10^3/uL (0.2-0.8); MONOCYTES % (AUTO) 7 % (2-9); NEUTROPHILS # (AUTO) 6.26 x10^3/uL (1.8-6.8); NEUTROPHILS % (AUTO) 60 % (42-75)
[2019-10-05 11:19] LABS: MD MORPH REVIEW ONLY
[2019-10-05 11:20] LABS: ANISOCYTOSIS 1+; HYPOCHROMIA 1+; MICROCYTOSIS 1+; TARGET CELLS 1+; TEAR DROPS 1+
[2019-10-05 11:21] LABS: <PLATELET ESTIMATE> INCREASED; LARGE PLATELETS 1+; POLYCHROMASIA 1+
--- NOTE | 2019-10-05 11:28 | NUR ---
Sandy TOMLIN at bedside to evaluate pt. Pt now able to tell staff her name and . Registration to change pt's status.
--- NOTE | 2019-10-05 11:31 | NUR ---
Meal tray ordered for pt.
--- NOTE | 2019-10-05 12:13 | NUR ---
Meal tray delivered to pt with SI precautions observed.
[2019-10-05 12:54] VITALS: BP 128/87
--- NOTE | 2019-10-05 13:05 | NUR ---
RECEIVED REPORT FROM JED SÁNCHEZ. PT RESTING IN BED. CHAY. SITTER AT BEDSIDE. ROOM REMAINS SECURE. PT TO BE TRANSPORTED TO [facility].
--- NOTE | 2019-10-05 13:10 | NUR ---
Report called to Cherry ADKINS at [facility]. Per Cherry pt is ok to be transfered prior to obtaining UDS sample. Floor will be ready for pt transport at 1400.
== END 2019-10-05 14:13 ==
LOC: EDBD → MERGE 08:30 → ED 11:30
DX: F20.1 Disorganized schizophrenia (principal); F44.9 Dissociative and conversion disorder, unspecified; F69 Unspecified disorder of adult personality and behavior; J45.909 Unspecified asthma, uncomplicated
CPT/HCPCS: 36415; 80048; 80307; 82040; 85025; 96372; 99285; J3486

== ENCOUNTER 2019-10-05 12:20 | Inpatient (IN) | payer MEDICAID ==
[~2019-10-05] VITALS: Ht 167.6 cm; Wt 95.6 kg
[2019-10-05] MEDS ORDERED: ONDANSETRON ODT 4 MG PO PRN (13:30)
[2019-10-05] MEDS ORDERED: ACETAMINOPHEN 325 MG TABLET PO PRN (13:30)
[2019-10-05] MEDS ORDERED: BISACODYL 10 MG SUPP PR PRN (13:30)
[2019-10-05] MEDS ORDERED: DOCUSATE 100 MG CAPSULE PO PRN (13:30)
[2019-10-05] MEDS ORDERED: POLYETHYLENE GLYCOL 17 GM PACKET PO PRN (13:30)
[2019-10-05] MEDS ORDERED: OLANZAPINE 10 MG INJ IM ONE ×2 (14:20→14:30)
[2019-10-05] MEDS ORDERED: PLEASE ENTER HEIGHT AND WEIGHT MC SCH (14:30)
[2019-10-05 15:31] VITALS: BP 116/71
[2019-10-05 16:18] LABS: CHOL/HDL RATIO 2.1; FREE T4 (FREE THYROXINE) 1.51 ng/dL (0.76-1.46)
[2019-10-05 22:15] VITALS: BP 96/60
[2019-10-05] MEDS ORDERED: LORazepam 1MG TABLET ONE (23:56)
[2019-10-06] MEDS ORDERED: OLANZAPINE 10 MG INJ IM ONE ×3 (01:30→13:00)
[2019-10-06] MEDS ORDERED: ALBUTEROL SULFATE 2.5 MG/3 ML NPPB PRN (08:30)
[2019-10-06] MEDS: PALIPERIDONE 3 MG TAB.ER.24 PO SCH (09:00)
[2019-10-06 10:08] LABS: MICROSCOPIC INDICATED
[2019-10-06 10:12] LABS: AMPHETAMINE SCREEN, URINE Positive (Negative); BARBITURATE SCREEN, URINE Negative (Negative); BENZODIAZEPINE SCREEN, URINE Negative (Negative); CANNABINOID SCREEN, URINE Negative (Negative); COCAINE SCREEN, URINE Negative (Negative); METHADONE SCREEN, URINE Negative (Negative); OPIATE SCREEN, URINE Negative (Negative)
[2019-10-06] MEDS ORDERED: LORazepam 1MG TABLET ONE ×2 (12:45→20:18)
[2019-10-06] MEDS ORDERED: DIPHENHYDRAMINE 50 MG/ML, 1ML ONE (13:47)
[2019-10-06] MEDS ORDERED: DIPHENHYDRAMINE 50 MG/ML, 1ML IM ONE ×2 (14:00→16:30)
[2019-10-06] MEDS ORDERED: HALOPERIDOL 5 MG/ML IM ONE (16:30)
[2019-10-06] MEDS ORDERED: LORazepam 2 MG/ML, 1ML IM ONE (16:30)
[2019-10-06] MEDS ORDERED: LORazepam 2 MG/ML, 1ML ONE (16:31)
[2019-10-06] MEDS ORDERED: HALOPERIDOL 5 MG/ML ONE (16:32)
[2019-10-06 19:59] VITALS: BP 103/74
[2019-10-07 07:41] VITALS: BP 119/80
[2019-10-07] MEDS ORDERED: LORazepam 1MG TABLET ONE (08:58)
[2019-10-07] MEDS: PALIPERIDONE 3 MG TAB.ER.24 PO SCH (09:00)
[2019-10-07] MEDS ORDERED: PALI3TAB11 PO (12:32)
== END 2019-10-07 12:30 | disposition left against medical advice (07) | DRG 750 ==
LOC: 3E 14:09
PROVIDERS: ADMIT Psychiatry & Neurology Psychosomatic Medicine; ATTEND Psychiatry & Neurology Psychosomatic Medicine
DX: F20.0 Paranoid schizophrenia (principal); F15.20 Other stimulant dependence, uncomplicated; E66.9 Obesity, unspecified; F17.200 Nicotine dependence, unspecified, uncomplicated; J45.909 Unspecified asthma, uncomplicated; F19.10 Other psychoactive substance abuse, uncomplicated; F29 Unspecified psychosis not due to a substance or known physiological condition; Z68.34 Body mass index [BMI] 34.0-34.9, adult
CPT/HCPCS: 36415; 80048; 80061; 80307; 81001; 81025; 82040; 84439; 84443; 84702; 85025; 87077; 87086; 87186; 96372; 99285; J3486; J1200; J1630; J2060

== ENCOUNTER 2019-10-08 11:17 | Emergency (ER) | payer MEDICAID ==
[~2019-10-08] VITALS: Ht 149.9 cm; Wt 112.5 kg
[~2019-10-08 11:17] MED LIST changes: +PALI3TAB11 PO
[2019-10-08 11:34] VITALS: BP 137/87
== END 2019-10-08 12:15 | disposition home or self-care (01) ==
LOC: ED 11:51
DX: F20.89 Other schizophrenia (principal); J45.909 Unspecified asthma, uncomplicated; F17.210 Nicotine dependence, cigarettes, uncomplicated
CPT/HCPCS: 99283; 99284